=== PATIENT | male | born 1995 | race African-American/Black ===

== ENCOUNTER 2019-08-09 10:23 | Emergency (ER) | payer OTHER, SELFPAY ==
[2019-08-09 10:46] VITALS: BP 131/114; PULSE 111; RESP 16; TEMP 36.7; O2SAT 99
--- NOTE | 2019-08-09 10:46 | ED.GENADULT ---
HPI - General Adult General Chief complaint: Skin/Abscess/Foreign Body Stated complaint: rash on buttocks Time Seen by Provider: 08/09/19 10:47 Source: patient and RN notes reviewed Mode of arrival: ambulatory Limitations: no limitations History of Present Illness HPI narrative: This is a 24 years old male presents to the office for an evaluation of rash for one week. Rash is very itchy at times. He also goes days without any symptoms. He tried wick junie, hydrocortisone, and otc fungal with little relief; but did not resolved it. He had similar episode about a year ago where his doctor prescribed him a combination cream with steroid which has helped a lot. However he ran out of it. He did not see any worms in the toilet. He does not have chicken at home. Related Data Allergies Allergy/AdvReac Type Severity Reaction Status Date / Time No Known Allergies Allergy Verified 08/09/19 10:51 Review of Systems Review of Systems: Narrative: CONSTITUTIONAL: Denies fever or feeling ill ENT: Denies congestion CARDIOVASCULAR: Denies chest pain RESPIRATORY: Denies dyspnea GASTROINTESTINAL: Denies abdominal pain, nausea, vomiting SKIN: Denies rash MUSCULOSKELETAL: Denies acute back pain NEUROLOGIC: Denies lightheaded PMFSH Comments At time of signature, I agree with nursing past medical, surgical, social and family history. There is no relevant family history pertinent to the presenting complaint. Exam Narrative: Exam Narrative: GENERAL: This is a well-nourished, well-developed patient, in no apparent distress. CARDIOVASCULAR: Regular rate and rhythm without murmurs, gallops, or rubs. RESPIRATORY: Clear to auscultation. Breath sounds equal bilaterally. No wheezes, rales, or rhonchi. GASTROINTESTINAL: Abdomen soft, non-tender, nondistended. Bowel sounds are active. No hepato-splenomegaly, or palpable masses. No guarding. SKIN: Exam chaperoned by nurse Josh, rectum tone is normal; no obvious lesions/sore/warm or erythema or edematous. NO worms noted. NEURO: awake, alert, and oriented to person, place and time. There were no obvious focal neurologic abnormalities. Steady gait [place] Coma Scale Eye Opening: Spontaneous 4 [place] Coma Scale Motor: Obeys Commands 6 [place] Coma Scale Verbal: Oriented 5 Medical Decision Making MDM Narrative Medical decision making narrative: Elevated BP noted: patient is informed that they may have pre-hypertension or hypertension based on a blood pressure reading in the department. I recommend the patient call the primary care provider listed on their discharge instructions or a physician of their choice this week to arrange follow-up for further evaluation of possible pre-hypertension or hypertension within 1-2week. Discharge instructions reviewed with patient, as well as provided in writing per nursing staff. The instructions also include specific and strict return/GO TO THE ER as well as f/u information. All questions have been answered, and the patient deny any further questions with discharge and discharge plan. Differential Diagnosis Differential Diagnosis: Dermatitis, tapeworm, yeast Critical Care Time Critical Care Time Critical Care Time: No Discharge Plan Discharge Clinical Impression: Itchy skin of anus and genitals Patient Disposition: Home, Self-Care Condition: Stable Instructions: Itchy Skin (ED) Additional Instructions: Use the prescribed cream as directed Also recommend using duct tape to check for tapeworms or follow up with your doctor for stools check if symptoms persist Please schedule a follow up visit with your personal physician for further evaluation and treatment. Including recheck and discussion of your blood pressure. If your symptoms persist, change or worsen significantly before you can contact your personal physician then please, without delay, go to the emergency department for further evaluation. Your blood pressure was elevated above 120/80 toda
== END 2019-08-09 11:12 | disposition home or self-care (01) ==
PROVIDERS: Emergency Provider Nurse Practitioner
DX: L29.3 Anogenital pruritus, unspecified (principal); R03.0 Elevated blood-pressure reading, without diagnosis of hypertension
CPT/HCPCS: 99203; G0463

== ENCOUNTER 2019-12-17 16:14 | Emergency (ER) | payer OTHER, SELFPAY ==
--- NOTE | 2019-12-17 16:16 | ED.GENADULT ---
HPI - General Adult General Chief complaint: Unspecified Stated complaint: Irritation in anus area Time Seen by Provider: 12/17/19 16:15 Source: patient Mode of arrival: ambulatory Limitations: no limitations History of Present Illness HPI narrative: 24-year-old male patient presents to the [facility] with complaints of anal itching for the past week. Patient states that this initially started for him about a year ago and was diagnosed with a small tear to the anus at that time. Patient states he was seen here in the past with similar symptoms and was given a cream that did help. Patient states he does have itching especially after having a bowel movement. Patient states at times he does have issues with constipation and states he used to take a stool softener but stopped taking it when he was in middle school. Patient states that time he does notice that he has bright red blood around the anus after a bowel movement. Patient states that that does not happen every time. Denies any fevers, body aches or chills. Denies any discharge from the anus. Related Data Allergies Allergy/AdvReac Type Severity Reaction Status Date / Time No Known Allergies Allergy Verified 12/17/19 16:28 Review of Systems Review of Systems: Narrative: CONSTITUTIONAL: Denies fever, chills, or sweats. EYES: Denies visual changes, redness, or discharge. ENT: Denies rhinorrhea, congestion, sore throat, or otalgia. CARDIOVASCULAR: Denies chest pain, palpitations, or edema. RESPIRATORY: Denies cough or dyspnea. GASTROINTESTINAL: Denies abdominal pain, nausea, vomiting, or diarrhea. GENITOURINARY: Denies dysuria or hematuria. SKIN: Denies rash or itching. Positive itching to anal area x1 week MUSCULOSKELETAL: Denies back pain, joint pain, or myalgia. NEUROLOGIC: Denies headache, numbness, or weakness. PSYCHIATRIC: Denies anxiety or depression. PMFSH Comments At the time of my signature I agree with nursing past medical history, surgical, social, and family history. There is no relevant family history pertinent to the presenting complaint. Exam Narrative: Exam Narrative: GENERAL: Well-appearing, well-nourished, and in no acute distress. HEAD: Normocephalic, atraumatic. EYES: PERRLA and EOMI. ENT: Nares clear, no rhinorrhea or epistaxis. Mucous membranes moist. NECK: Supple. No lymphadenopathy CHEST: Clear to auscultation. No respiratory distress. HEART: Regular rate and rhythm. No murmur heard. Normal peripheral pulses. ABDOMEN: Soft, nontender, nondistended, normal active bowel sounds. EXTREMITIES: Normal range of motion. No edema. SKIN: Warm, dry, patient does have a shiny red rash noted to the 6:00 area of the anus. There is no obvious worms, tears or any obvious external hemorrhoids noted at this time. NEURO: No focal deficits. Alert and oriented x3. Course Vital Signs Vital signs: Vital Signs Temperature 36.8 C 12/17/19 16:24 Pulse Rate 85 12/17/19 16:24 Respiratory Rate 18 12/17/19 16:24 Blood Pressure 147/92 H 12/17/19 16:24 Pulse Oximetry 100 12/17/19 16:24 Temperature 36.8 C 12/17/19 16:24 Pulse Rate 85 12/17/19 16:24 Respiratory Rate 18 12/17/19 16:24 Blood Pressure 147/92 H 12/17/19 16:24 Pulse Oximetry 100 12/17/19 16:24 Vital signs reviewed. The patient has been informed that they may have pre-hypertension or Hypertension based on a BP reading in the department. I recommend that the patient call the primary care provider listed on their discharge instructions or a physician of their choice this week to arrange follow up for further evaluation of possible pre-hypertension or Hypertension Medical Decision Making Differential Diagnosis Differential Diagnosis: Differential diagnosis: Contact dermatitis, poison ashvin, poison sumac, psoriasis, eczema, allergic reaction, drug reaction, scabies, tinea syphilis, lung disease, viral exanthema, pityriasis, erythema multiforme. Discussed with patient that this is m
[2019-12-17 16:24] VITALS: BP 147/92; PULSE 85; RESP 18; TEMP 36.8; O2SAT 100
== END 2019-12-17 16:44 | disposition home or self-care (01) ==
PROVIDERS: Emergency Provider Nurse Practitioner Family
DX: L29.0 Pruritus ani (principal); B37.89 Other sites of candidiasis
CPT/HCPCS: 99213; G0463

== ENCOUNTER 2020-06-29 08:07 | Emergency (ER) | payer OTHER, SELFPAY ==
--- NOTE | 2020-06-29 08:14 | ED.GENADULT ---
HPI - General Adult General Chief complaint: Eye Problems Stated complaint: Eye Pain Time Seen by Provider: 06/29/20 08:14 Source: patient Mode of arrival: ambulatory Limitations: no limitations History of Present Illness HPI narrative: 25-year-old male patient presents to the [facility] with complaints of right eye pain for the past 2 days. Patient states he has been slightly sore and has couple bumps to his right lower leg. Denies any vision changes or draining coming from the eye. Patient states he has just been washing the area with some water. Related Data Allergies Allergy/AdvReac Type Severity Reaction Status Date / Time No Known Allergies Allergy Verified 06/29/20 08:19 Review of Systems Review of Systems: Narrative: CONSTITUTIONAL: Denies fever, chills, or sweats. EYES: Denies visual changes, redness, or discharge. Positive soreness to right lower leg x2 days ENT: Denies rhinorrhea, congestion, sore throat, or otalgia. CARDIOVASCULAR: Denies chest pain, palpitations, or edema. RESPIRATORY: Denies cough or dyspnea. GASTROINTESTINAL: Denies abdominal pain, nausea, vomiting, or diarrhea. GENITOURINARY: Denies dysuria or hematuria. SKIN: Denies rash or itching. MUSCULOSKELETAL: Denies back pain, joint pain, or myalgia. NEUROLOGIC: Denies headache, numbness, or weakness. PSYCHIATRIC: Denies anxiety or depression. [facility] Past Medical History Medical History (Updated 06/29/20 @ 08:30 by AUGIE Marin) Hypertension Comments At the time of my signature I agree with nursing past medical history, surgical, social, and family history. There is no relevant family history pertinent to the presenting complaint. Exam Narrative: Exam Narrative: GENERAL: Well-appearing, well-nourished, and in no acute distress. HEAD: Normocephalic, atraumatic. EYES: PERRLA and EOM intact without limitation or complaint of pain, no periorbital soft tissue swelling ,no erythema, warmth or tenderness noted, no obvious deformity. No crusting or swelling.no tearing or draining.No photophobia. Patient has 2 small styes to the external portion of the right lower lid. No drainage noted at this time. No nystagmus No FB or lesion on lid eversion. Corneas grossly clear, no obvious FB or hyphens/hypopyon. No injection to sclera. Lids and lashes clear. ENT: Nares clear, no rhinorrhea or epistaxis. Mucous membranes moist. NECK: Supple. No lymphadenopathy CHEST: Clear to auscultation. No respiratory distress. HEART: Regular rate and rhythm. No murmur heard. Normal peripheral pulses. ABDOMEN: Soft, nontender, nondistended, normal active bowel sounds. EXTREMITIES: Normal range of motion. No edema. SKIN: Warm, dry, no rash. NEURO: No focal deficits. Alert and oriented x3. Course Vital Signs Vital signs: Vital Signs Temperature 36.4 C L 06/29/20 08:17 Pulse Rate 81 06/29/20 08:17 Respiratory Rate 18 06/29/20 08:17 Blood Pressure 140/103 H 06/29/20 08:17 Pulse Oximetry 100 06/29/20 08:17 Temperature 36.4 C L 06/29/20 08:17 Pulse Rate 81 06/29/20 08:17 Respiratory Rate 18 06/29/20 08:17 Blood Pressure 140/103 H 06/29/20 08:17 Pulse Oximetry 100 06/29/20 08:17 Vital signs reviewed Medical Decision Making Differential Diagnosis Differential Diagnosis: Differential diagnosis: Conjunctivitis, foreign body, corneal ulcer, Keratitis, dendritic lesions, corneal abrasion, very orbital infection, orbital cellulitis, orbital pain, acute narrow angle glaucoma, detached retina, central retinal artery occlusion, complete hyphema, vitreous hemorrhage, optic neuritis, globe disruption Vital Signs Vital Signs: Vital Signs Temperature 36.4 C L 06/29/20 08:17 Pulse Rate 81 06/29/20 08:17 Respiratory Rate 18 06/29/20 08:17 Blood Pressure 140/103 H 06/29/20 08:17 Pulse Oximetry 100 06/29/20 08:17 Temperature 36.4 C L 06/29/20 08:17 Pulse Rate 81 06/29/20 08:17 Respiratory Rate 18 06/29/20 08:17 Blood P
[2020-06-29 08:17] VITALS: BP 140/103; PULSE 81; RESP 18; TEMP 36.4; O2SAT 100
== END 2020-06-29 08:26 | disposition home or self-care (01) ==
PROVIDERS: Emergency Provider Nurse Practitioner Family
DX: H00.012 Hordeolum externum right lower eyelid (principal); I10 Essential (primary) hypertension
CPT/HCPCS: 99213; G0463

== ENCOUNTER 2021-01-19 17:26 | Emergency (ER) | payer OTHER, SELFPAY ==
[2021-01-19] VITALS (11 sets, daily range): BP systolic 148–162; BP diastolic 91–116; PULSE 86–100; RESP 11–22; TEMP 36; O2SAT 99–100
--- NOTE | ~2021-01-19 | XR_ITS ---
EXAMINATION: XR chest 2V DATE: 01/19/2021 18:17 INDICATION: Dyspnea and chest tightness TECHNIQUE: PA and lateral views of the chest were obtained. COMPARISON: None FINDINGS: The lungs are clear with no focal airspace opacities, pulmonary edema, pleural effusion or pneumothor ax. The cardiomediastinal silhouette is normal. Visualized bones and soft tissues are unremarkable. IMPRESSION: 1. Normal chest radiograph. Reviewed, dictated and finalized at location A. ENGINEER FREIGHT IMPRESSION: 1. Normal chest radiograph.
--- NOTE | 2021-01-19 17:39 | ECG_ITS ---
Measurements Intervals [place] Rate: 85 P: 73 CA: 162 QRS: 101 QRSD: 108 T: 36 QT: 352 QTc: 420 Interpretive Statements SINUS RHYTHM WITH SINUS ARRHYTHMIA RIGHT AXIS DEVIATION DELAYED PRECORDIAL R/S TRANSITION BORDERLINE ECG Electronically Signed On 01-19-2021 17:45:36 [employer]IC[employer] by Hayden Hilton D.O.
[2021-01-19 18:01] LABS: Basophils Absolute Auto 0.1 K/mm3 (0.0-0.1); Basophils Percent Auto 0.6 % (0.2-1.2); Eosinophils Absolute Auto 0.5 K/mm3 (0-0.3); Eosinophils Percent Auto 3.5 % (0-4.4); Hematocrit 45.3 % (42.0-52.0); Hemoglobin 15.3 g/dL (14.0-18.0); Immature Granulocyte Absolute 0.03 K/mm3 (0.00-0.031); Immature Granulocyte Percent A 0.2 % (0-0.5); Lymphocytes Absolute Auto 4.17 K/mm3 (0.9-3.2); Lymphocytes Percent Auto 30.9 % (18.3-44.2); Mean Corpuscular HGB Conc 33.8 g/dl (32-36); Mean Corpuscular Hemoglobin 29.1 pg (26-34); Mean Corpuscular Volume 86.1 fl (80-100); Mean Platelet Volume 10.2 fl (7.4-10.4); Monocytes Absolute Auto 1.1 K/mm3 (0.1-0.6); Monocytes Percent Auto 7.9 % (2.6-8.5); Neutrophils Absolute Auto 7.7 K/mm3 (1.3-6.7); Neutrophils Percent Auto 56.9 % (45.5-73.1); Platelet Count Result 370 k/mm3 (150-375); Red Blood Count 5.26 M/mm3 (4.6-6.20); Red Cell Distribution Width 14.4 % (11.5-14.5); White Blood Count 13.5 K/mm3 (4.5-10.0)
[2021-01-19] MEDS: ALBUTEROL SULFATE NEB 2.5 MG/0.5 ML INH 5 MG INHALATION ×2 (19:43→19:59)
[2021-01-19] MEDS: IPRATROPIUM BR 0.02% INH SOLN 0.5 MG/2.5 ML VIAL INHALATION ×2 (19:44→19:59)
--- NOTE | 2021-01-19 19:56 | ED.SOB ---
HPI - SOB/Dyspnea General Chief Complaint: Shortness of Breath/Dyspnea Stated Complaint: hard to breath Time Seen by Provider: 01/19/21 19:04 Source: patient History of Present Illness HPI Narrative: Patient presents with shortness of breath. Patient reports he most notices it with physical activity and becomes more winded with walking short distances. Reports he had an episode of this several weeks ago which appeared to resolve on its own. Current episode is lasted for the past couple days he does report a cough denies fevers. Reports chronic congestion has not noted any acute changes in his normal congestion. Denies any nausea vomiting chest pain diarrhea lightheadedness or dizziness. He does report he smokes daily denies prior diagnosis of asthma Related Data Allergies Allergy/AdvReac Type Severity Reaction Status Date / Time No Known Allergies Allergy Verified 06/29/20 08:19 Review of Systems Review of Systems: CONSTITUTIONAL: Denies fever, chills, or sweats. EYES: Denies visual changes, redness, or discharge. ENT: Reports chronic congestion denies sore throat CARDIOVASCULAR: Denies chest pain, palpitations, or edema. RESPIRATORY: Reports cough and shortness of breath GASTROINTESTINAL: Denies abdominal pain, nausea, vomiting, or diarrhea. GENITOURINARY: Denies dysuria or hematuria. SKIN: Denies rash or itching. MUSCULOSKELETAL: Denies back pain, joint pain, or myalgia. NEUROLOGIC: Denies headache, numbness, dizziness, or weakness. PSYCHIATRIC: Denies anxiety or depression. All systems reviewed & are unremarkable except as noted in HPI and below PMFSH Past Medical History Medical History Hypertension Exam Narrative: GENERAL: Well-appearing, well-nourished, and in no acute distress. HEAD: Normocephalic, atraumatic. EYES: PERRLA and EOMI. ENT: Nares clear, no rhinorrhea or epistaxis. Mucous membranes moist. NECK: Supple. No masses. No JVD CHEST: Diminished aeration all lung foote with a Tory expiratory wheezing diffusely HEART: Regular rate and rhythm. No murmur heard. Normal peripheral pulses. EXTREMITIES: Normal range of motion. No edema. SKIN: Warm, dry, no rash. NEURO: No focal deficits. Alert and oriented x3. PSYCH: Normal mood and affect. Course Reevaluation(s) Reevaluation #1: Patient ports feeling much improved after DuoNeb therapies repeat exam is improved suspect bronchospastic possible symptoms possibly undiagnosed asthma. Patient is comfortable with continued outpatient management. Date: 01/19/21 Time: 20:24 Vital Signs Vital signs: Vital Signs Temperature 36.0 C L 01/19/21 17:33 Pulse Rate 94 01/19/21 17:33 Respiratory Rate 18 01/19/21 17:33 Blood Pressure 159/116 H 01/19/21 17:33 Pulse Oximetry 99 01/19/21 17:33 Temperature 36.0 C L 01/19/21 17:33 Pulse Rate 93 01/19/21 20:30 Respiratory Rate 14 01/19/21 20:30 Blood Pressure 161/92 H 01/19/21 20:30 Pulse Oximetry 99 01/19/21 20:30 MDM - SOB/Dyspnea MDM Narrative Medical decision making narrative: H&P as above, vs with hypertension, pt looks clinically well, exam with diffuse wheezing initially, labs clinically unremarkable, img clinically unremarkable, additional labs/img considered, symptomatic relief available as needed, on reevaluation pt continues to looks clinically well. Suspect asthma, dns pneumonia, severe sepsis, pneumothorax, hypoxia. plan to tx/monitor as op w/ pcm f/u findings/plan discussed with pt, pt agree/comfortable with plan, return precautions given. Patient counseled on Covid vaccination status Lab Data Result diagrams: 01/19/21 17:55 01/19/21 20:13 Labs: Lab Results 01/19/21 01/19/21 Range/Units 17:55 20:13 WBC 13.5 H (4.5-10.0) K/mm3 RBC 5.26 (4.6-6.20) M/mm3 Hgb 15.3 (14.0-18.0) g/dL Hct 45.3 (42.0-52.0) % MCV 86.1 (80-100) fl MCH 29.1 (26-34) pg MCHC 33.8 (32-36
[2021-01-19] MEDS: predniSONE 20 MG TABLET 60 MG PO (20:23)
[2021-01-19 20:33] LABS: Alanine Aminotransferase 18 U/L (4-50); Albumin Level 4.5 g/dL (3.5-5.1); Alkaline Phosphatase 94 U/L (38-126); Anion Gap 9 mmol/L (8-16); Aspartate Amino Transferase 20 U/L (17-59); Bilirubin,Total 0.4 mg/dL (0.2-1.3); Blood Urea Nitrogen 15 mg/dL (9-20); Calcium 9.5 mg/dL (8.4-10.2); Carbon Dioxide 27 mmol/L (22-30); Chloride 101 mmol/L (98-107); Estimated CRCL calculation 208 ml/min; Estimated Glomerular Filt Rate > 60; Glucose 96 mg/dL (65-110); Potassium 4.4 mmol/L (3.4-5.0); Sodium 137 mmol/L (137-145)
== END 2021-01-19 20:44 | disposition home or self-care (01) ==
PROVIDERS: Emergency Medicine; Emergency Provider Emergency Medicine
DX: R06.00 Dyspnea, unspecified (principal); R06.2 Wheezing; I10 Essential (primary) hypertension; R94.31 Abnormal electrocardiogram [ECG] [EKG]
CPT/HCPCS: 36415; 71046; 80053; 85025; 93005; 94640; 99284; J7512

== ENCOUNTER 2021-10-26 07:32 | Emergency (ER) | payer OTHER, SELFPAY ==
--- NOTE | ~2021-10-26 | CT_ITS ---
EXAMINATION: CT abdomen pelvis w con INDICATION: Abdominal pain TECHNIQUE: Computed tomographic images of the abdomen and pelvis were obtained after the administrati on of 100 cc of Omnipaque 350 intravenous contrast. The dose-length product (DLP) was 1566.86 mGy-cm. Automated exposure control and iterative reconstruction technique were employed. COMPARISON: None available FINDINGS: There is a 9 mm nodule in the right lower lobe. The heart size is normal. The liver, spleen , pancreas, gallbladder, and adrenal glands are normal. The kidneys are unremarkable. No pathological ly enlarged abdominal or pelvic lymph nodes are identified. There is no free intraperitoneal gas or e vidence of bowel obstruction. There is a fat-containing umbilical hernia. There is mild bruising of t he anterior abdominal wall on the right lower quadrant. IMPRESSION: 1. No CT correlate for the patient's symptoms. 2. Indeterminate 9 mm nodule of the right lower lobe. Follow-up CT in three months is recommended. Reviewed, dictated and finalized at location A. IMPRESSION: 1. No CT correlate for the patient's symptoms. 2. Indeterminate 9 mm nodule of the right lower lobe. Follow-up CT in three mon ths is recommended.
[2021-10-26 07:33] VITALS: BP 153/95; PULSE 88; RESP 20; TEMP 36.4; O2SAT 99
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
[2021-10-26] MEDS: KETOROLAC 30 MG/ML VIAL (*BKC) IV PUSH (07:59)
[2021-10-26 08:01] LABS: Basophils Percent Auto 0.4 % (0.2-1.2); Eosinophils Absolute Auto 0.3 K/mm3 (0-0.3); Eosinophils Percent Auto 3.9 % (0-4.4); Hematocrit 41.5 % (42.0-52.0); Hemoglobin 13.4 g/dL (14.0-18.0); Immature Granulocyte Absolute 0.01 K/mm3 (0.00-0.031); Immature Granulocyte Percent A 0.1 % (0-0.5); Lymphocytes Absolute Auto 2.72 K/mm3 (0.9-3.2); Lymphocytes Percent Auto 39.8 % (18.3-44.2); Mean Corpuscular HGB Conc 32.3 g/dl (32-36); Mean Corpuscular Hemoglobin 28.8 pg (26-34); Mean Corpuscular Volume 89.1 fl (80-100); Mean Platelet Volume 9.5 fl (7.4-10.4); Monocytes Absolute Auto 0.6 K/mm3 (0.1-0.6); Monocytes Percent Auto 8.9 % (2.6-8.5); Neutrophils Absolute Auto 3.2 K/mm3 (1.3-6.7); Neutrophils Percent Auto 46.9 % (45.5-73.1); Platelet Count Result 313 k/mm3 (150-375); Red Blood Count 4.66 M/mm3 (4.6-6.20); Red Cell Distribution Width 15.6 % (11.5-14.5); White Blood Count 6.8 K/mm3 (4.5-10.0)
[2021-10-26 08:20] LABS: Alanine Aminotransferase 25 U/L (6-50); Alkaline Phosphatase 69 U/L (38-126); Anion Gap 11 mmol/L (8-16); Aspartate Amino Transferase 44 U/L (17-59); Bilirubin,Total 0.5 mg/dL (0.2-1.3); Blood Urea Nitrogen 15 mg/dL (9-20); Calcium 8.7 mg/dL (8.4-10.2); Carbon Dioxide 24 mmol/L (22-30); Chloride 105 mmol/L (98-107); Estimated CRCL calculation 215 ml/min; Estimated Glomerular Filt Rate > 60; Glucose 106 mg/dL (65-110); Lipase 45 U/L (23-300); Potassium 3.9 mmol/L (3.4-5.0); Sodium 140 mmol/L (137-145)
--- NOTE | 2021-10-26 08:27 | PC.NURSE ---
Patient to radiology
[2021-10-26 08:29] VITALS: TEMP 36.4
[2021-10-26 10:01] VITALS: BP 155/78; PULSE 87; RESP 18; O2SAT 98
== END 2021-10-26 10:03 | disposition home or self-care (01) ==
PROVIDERS: Emergency Provider Emergency Medicine
DX: S30.1XXA Contusion of abdominal wall, initial encounter (principal); R91.1 Solitary pulmonary nodule; I10 Essential (primary) hypertension; V68.5XXA Driver of heavy transport vehicle injured in noncollision transport accident in traffic accident, initial encounter
CPT/HCPCS: 36415; 74177; 80053; 83690; 85025; 96374; 99284; J1885; Q9967

== ENCOUNTER 2024-06-12 05:14 | Emergency (ER) | payer OTHER, SELFPAY ==
[2024-06-12 05:14] VITALS: BP 143/97; PULSE 108; RESP 16; TEMP 36.6; O2SAT 99
--- OUTSIDE RECORDS SUMMARY | 2024-06-12 05:16 | XMS_ITS | Clinical Summary ---
Author Organization [facility] Address [address] [place] [address] Care Team Providers Care Customer Equipment Engineer Name Role Phone Nick Rosenthal MD Primary Care Provider [phone] Allergies No known active allergies Social History Tobacco Use Types Packs/Day Years Used Date Smoking Tobacco: Never Smokeless Tobacco: Never Alcohol Use Standard Drinks/Week Comments Never 0 (1 standard drink = 0.6 oz pur e alcohol) AUDIT-C Answer Date Recorded Frequency of Alcohol Consumption Never 09/28/2019 Average Number of Drinks Not on file 020 Frequency of Binge Drinking Not on file 08/31 Sex and Gender Information Value Date Recorded Sex Assigned at Not on file Legal Sex Male 11:00 AM CDT Gender Identity Not on file Sexual Orientation Not on file Last Filed Vital Signs Vital Sign Reading Time Taken Comments Blood Pressure 150/89 09/28/2019 11:06 AM CDT Pulse 86 09/28/2019 11:06 AM CDT Temperature - - Respiratory Rate 18 09/28/2019 11:0 6 AM CDT Oxygen Saturation 99% 09/28/2019 11: 06 AM CDT Inhaled Oxygen Concentration - - Weight 183.3 kg (404 lb 1.7 oz) 020 11:06 AM CDT Height 167.6 cm (5' 6 ) 09/28/2019 11:0 6 AM CDT Body Mass Index 65.22 09/28/2019 11:06 AM CDT Plan of Treatment Health Maintenance Due Date Last Done Comments Annual Physical 01/03/1996 Hepatitis C 2011 DTaP, Tdap and Td Vaccines ( 1 - Tdap) 01/03/2012 Hepatitis B Vaccines (1 of 3 - 19+ 3-dose series) 01/03/2012 COVID-19 Vaccine (2023-2 5 season) 2023 HPV Vaccines Aged Out No longer eligi ble based on patient's age to complete this topic Meningococcal B Vaccine Aged Out No l onger eligible based on patient's age to complete this topic Meningococcal Vaccine Aged Out No remington tete eligible based on patient's age to complete this topic Pneumococcal Vaccine: Pediat rics (0 to 5 Years) and At-Risk Patients (6 to 49 Years) Aged Out No longer eligible b ased on patient's age to complete this topic RSV Immunizations Under 20 Months Aged Out No longer eligible based on patient's age to complete this topic Care Teams Customer Equipment Engineer Relationship Specialty Start Date End Date Nick Rosenthal MD [address] [place] [address] PCP - General INTERNAL MEDICINE 09/28/19
--- OUTSIDE RECORDS SUMMARY | 2024-06-12 05:16 | XMS_ITS | Data Portability ---
Author Organization [place] - [facility] [employer], Main Office Address [address] [place] [address] Care Team Providers Care Regrader Name Role Phone ANA MARÍA HARDING Primary Care Provider Assessment No assessment recorded. Plan of Treatment Reminders Order Date Submit Date Provider Last Modified By Organization Details Last Modified Time Details Appointments New Patient 30 2024 08:00A M HALIMA Wright Not available Not available Not available Lab None recorded. Referral None recorded. Procedures None recorded. Surgeries None recorded. Imaging None recorded. Medication Orders cefdinir 300 mg capsule 2023 024 [employer] [facility]/Pharmacy #[id number], [address] [place], [address], 11/04/2023 15:02:35 prednison e 20 mg tablet 2023 024 [employer] [facility]/Pharmacy #[id number], [address] [place], [address], 11/04/2023 15:02:35 Patient TargetsNo targets recorded. Patient InstructionsNo instructions recorded. Reason for Referral None Reported. Results Created Date Observation Date Name Description Value Unit Range Abnormal Flag Note LastModifiedBy Organization Detail LastModifiedTime 11/25/1911/24/2023 CT, sinus es, w/o contr ast No observ ation record ed. [email or web address] [facility] [address] [place], [address], 12/07/2023 11:29:47 12/21/19 24 11/24/2023 CT, sinus es, w/o contr ast No observ ation record ed. BARCODE [facility] ([facility] Sched[facility]) [address] [place], [address], 12/21/2023 15:17:21 Result Notes None recorded. Problems Name Problem SNOMED Code Status Onset Date Resolution Date Notes Provider Name and Address Organization Details Recorded Time Allergic rhinitis 05198863 Active 024 Ragini Smith RN null, [facility] [employer] [facility] 14:56:21 Chronic sinusitis 08802674 Active 024 Ragini Smith RN null, [facility] [employer] [facility] 14:56:32 Problem Notes None recorded. Procedures Surgical History None recorded. Imaging Results Imaging Date Name Status LastModified by Organiz ation Details LastModified Time 11/24/2023 CT, sinuses, w/o contrast completed [address] [place], [address], 12/07/2023 11:29:47 11/24/2023 CT, sinuses, w/o contrast completed [facility] ([facility] Sched[facility]) [address] [place], [address], 12/21/2023 15:17:21 Procedure Notes None recorded. Medical Equipment None Reported. Allergies No known drug allergies Medications Name Sig Start Date Stop Date Status Note LastModified by Organization Details LastModified Time prednisone 20 mg tablet TAKE 1 TABLET BY MOUTH TWICE A DAY FOR 5 DAYS active Not Available Not Available No t Available topiramate 25 mg tablet TAKE 1 TABLET BY MOUTH TWICE A DAY 11/03 completed Not Available Not Available Not Available phentermine 37.5 mg tablet TAKE 1 TABLET BY MOUTH DAILY BEFORE BREAKFAST 11/03 completed Not Available Not Available Not Available cefdinir 300 mg capsule TAKE 1 CAPSULE BY MOUTH EVERY 12 HOURS FOR 10 DAYS active Not Available Not Available No t Available Vitals Date Recorded Body height Body mass index (BMI) Body weight Body temperature Provider Name and Address Organization Details Last Updated DateTime 11/04/2023 167.64 cm 80 kg/m2 083793.1 g 98.2 [degF] FAHAD Peacock [facility] [employer] [facility] 11/04/2023 14:51:51 Social History Question Answer Notes LastModified by Organizat ion Details LastModified Time Tobacco Smoking Status Former Smoker Kristi Taylor [place], [place] [facility] 11/03/2023 16:05:15 What Is Your Level Of Alcohol Consumption? Occasional [email or web address] Information not available 11/03/2023 When Did You Quit Smoking? 1-5yearssinyasmeen kyle [email or web address] Information not available 11/03/2023 Sex: Unknown Functional Status None recorded. Mental Status None recorded. Family History Nothing Reported Notes:no ent Medical History Condition Response MRSA N BACK INJECTIONS N ALLERGIES/HAYFEVER N LUNG DISEASE/DISORDER N INSOMNIA N HISTORY OF DRUG ABUSE N ESRD N RADIATION / CHEMOTHERAPY N COPD N HIGH CHOLESTEROL / HYPERLIPIDEMIA N HYPERTHYROIDISM N PVD N BLOOD DISEASES N EAR OR HEARING PROBLEMS N HYPOTHYROIDISM N SHINGLES N DEPRESSION (INCLUDING POST ) N BACK / NECK PROBLEMS N HAVE YOU BEEN HOSPITALIZED OR SEEN IN [facility] ER IN THE PAST YEAR ? N FAILED BACK SYNDROME N STROKE/TIA N POLYCYSTIC OVARIES N OBESITY N HISTORY WITH COMPLICATIONS WITH ANESTHES IA ? N ANEURYSM N Do you have Advance directive? N USE OF BLOOD THINNERS N NO SIGNIFICANT PAST MEDICAL HISTORY N DIABETES, TYPE N VON WILLIBRAND'S DISEASE N PARATHYROID DISEASE N ENT N SEASONAL ALLERGIES N HEARTBURN / REFLUX N POST LAMINECTOMY SYNDROME N HEPATITIS / LIVER DISEASE N SLEEP DISORDER Y ARTERIAL INSUFFICIENCY N SEIZURES/EPILEPSY N HEADACHES/MIGRAINES N CHF N PACEMAKER N DIZZINESS N HEART DISEASE/HEART PROBLEMS N AIDS/HIV N NEUROPSYCHOLOGICAL N HYPERTENSION N CANCER: SPECIFY N TOURETTE'S N BLOOD TRANSFUSION N ANESTHESIA COMPLICATIONS N ANEMIA/BLOOD DISORDER N CHRONIC EAR INFECTIONS N ATRIAL FIBRILLATION N AUTOIMMUNE DISEASE N TUBERCULOSIS N Past Encounters Encounter ID Performer Location Encounter Start Date Encounter Closed Date Diagnosis/Indication Diagnosis SNOMED-CT Code Diagnosis ICD10 Code Diagnosis Note [id number] AUGIE Garrido [facility] [place] [address] [place] [address] 11/04/2023 14:41:27 11/04/2023 15:03:19 Chronic sinusitis 63127127 J32.9 Health Concerns Section Related Observation LastModified by Organization Detai ls LastModified Time None Recorded Concern Status LastModified by Organization Details LastModified Time None Recorded Advance Directives Directive None Recorded Payers Encounter Date Sequence Insurance Name Policy Number Policy Hahn Covered Member ID Hahn Member ID Guarantor Name 11/04/2023 1 [employer] [place] - DOS ON OR AFTER 2020 (MEDICAID REPLACEMENT - HMO) Hayder Dalal [id number] Hayder Dalal Notes Date Note Type Note Provider Name and Address Organization Details Recorded Time 11/04/2023 text/html This patient has a past medical history significant for obesity and sleep apnea. He presents to the office with complaints of ear pressure, decreased hearing, nasal congestion, and sinus drainage. He states that the ear pressure developed approximately 2 years ago. He reports that when his nasal congestion increases, he develops the ear pressure. He states that he has constant sinus related problems since approximately the age of 6. He denies use of gwmo-hld-qfxttsh medications. He denies any recent imaging. He denies having ever seen an sawsmith. He reports use of CPAP nightly for sleep apnea. He does report routine cleaning of his CPAP device. Ragini Evans, AUGIE [address] [facility] [address], [place], [address], [place] [facility] 11/04/2023 15:02:45
--- OUTSIDE RECORDS SUMMARY | 2024-06-12 05:16 | XMS_ITS | Clinical Summary ---
Author Organization [facility] Address [address] Wagner: Epic Prelude ADT [place] [address] Care Team Providers Care Salesperson [employer] Name Role Phone Unavailable Primary Care Provider Unavailabl e Social History Tobacco Use Types Packs/Day Years Used Date Smoking Tobacco: Never Assessed Sex and Gender Information Value Date Recorded Sex Assigned at Not on file Legal Sex Male 11:53 PM CDT Gender Identity Not on file Sexual Orientation Not on file Plan of Treatment Health Maintenance Due Date Last Done Comments DTAP/TDAP/TD VACCINES (1 - Tdap) 01/03/2012 HEPATITIS B VACCINES (1 of 3 - 19+ 3-dose series) 01/03/2012 INFLUENZA VACCINE (#1) 2023 HPV VACCINES Aged Out No longer eligi ble based on patient's age to complete this topic PNEUMOCOCCAL VACCINE 0-49 YEARS Aged Out No longer eligible based on patient's age to complete this topic
--- NOTE | 2024-06-12 06:06 | ED_ITS ---
HPI - General Adult General Chief complaint: Extremity Injury, Upper Stated complaint: swollen right finger Time Seen by Provider: 06/12/24 05:54 History of Present Illness HPI narrative: Patient 29-year-old gentleman presents to the emergency department with chief complaint of swelling at the cuticle of the right middle finger. Patient reports that he had a hangnail he pulled it and noticed that he started having swelling in the cuticle area of his right middle finger. The patient states he feels though his finger is throbbing reports that he feels as though there is pus underneath the tissue Related Data Allergies Allergy/AdvReac Type Severity Reaction Status Date / Time No Known Allergies Allergy Verified 10/26/21 07:44 Review of Systems Review of Systems: A 10 system review of systems was completed on the patient and is negative except for what is stated in the HPI. Nursing and ancillary documentation was reviewed. PMFSH Past Medical History Medical History Hypertension Surgical History Surgical History No pertinent past surgical history Exam Narrative: GENERAL: Well-appearing, well-nourished, and in no acute distress. HEAD: Normocephalic, atraumatic. EYES: PERRLA and EOMI. ENT: Nares clear, no rhinorrhea or epistaxis. Mucous membranes moist. NECK: Supple. CHEST: Clear to auscultation. No respiratory distress. HEART: Regular rate and rhythm. No murmur heard. Normal peripheral pulses. ABDOMEN: Soft, nontender, nondistended, normal active bowel sounds. EXTREMITIES: Normal range of motion. No edema. There is a paronychia present of the right middle finger SKIN: Warm, dry, no rash. NEURO: No focal deficits. Alert and oriented x3. PSYCH: Normal mood and affect. Course Vital Signs Vital signs: Vital Signs Temperature 36.6 C 06/12/24 05:14 Pulse Rate 108 H 06/12/24 05:14 Respiratory Rate 16 06/12/24 05:14 Blood Pressure 143/97 H 06/12/24 05:14 Pulse Oximetry 99 06/12/24 05:14 Oxygen Delivery Room Air 06/12/24 05:14 Temperature 36.6 C 06/12/24 05:14 Pulse Rate 108 H 06/12/24 05:14 Respiratory Rate 16 06/12/24 05:14 Blood Pressure 143/97 H 06/12/24 05:14 Pulse Oximetry 99 06/12/24 05:14 Oxygen Delivery Room Air 06/12/24 05:14 Procedures Abscess I/D Right middle finger cuticle: Date of Incision: 06/12/24 Time of Incision: 06:08 Side (if applicable): right Local Anesthetic: none Technique: other (Cuticle raised with a 18 gauge needle) Amount of fluid expressed (mL): 2 I&D Results: Pus Medical Decision Making Vital Signs Vital Signs: Vital Signs Temperature 36.6 C 06/12/24 05:14 Pulse Rate 108 H 06/12/24 05:14 Respiratory Rate 16 06/12/24 05:14 Blood Pressure 143/97 H 06/12/24 05:14 Pulse Oximetry 99 06/12/24 05:14 Oxygen Delivery Room Air 06/12/24 05:14 Temperature 36.6 C 06/12/24 05:14 Pulse Rate 108 H 06/12/24 05:14 Respiratory Rate 16 06/12/24 05:14 Blood Pressure 143/97 H 06/12/24 05:14 Pulse Oximetry 99 06/12/24 05:14 Oxygen Delivery Room Air 06/12/24 05:14 Discharge Plan Discharge Clinical Impression: Paronychia Patient Disposition: Home Condition: Stable Instructions: Antibiotic Form, Paronychia (ED) Patient Language: Indonesian Prescriptions: New sulfamethoxazole-trimethoprim [Bactrim DS] 800-160 mg tablet 1 tablet PO Q12H Qty: 14 0RF sulfamethoxazole-trimethoprim [Bactrim DS] 800-160 mg tablet 1 tablet PO Q12H Qty: 14 0RF No Action erythromycin 5 mg/gram (0.5 %) ointment 1 applic RIGHT EYE DAILY Qty: 3.5 0RF albuterol sulfate 90 mcg/actuation HFA aerosol inhaler 2 puff inhalation QID PRN (Reason: shortness of breath or wheezing) Qty: 6.7 0RF prednisone 50 mg tablet 50 mg PO DAILY Qty: 4 0RF cyclobenzaprine 10 mg tablet 10 mg PO TID PRN (Reason: muscle spasm) Qty: 20 0RF naproxen 375 mg tablet 375 mg PO BID Qty: 14 0RF Follow-up/Referrals: PHYSICIAN NOT ON STAFF,NONSTAFF [Primary Care Provider] - Time of Disposition: 06:09
--- OUTSIDE RECORDS SUMMARY | 2024-06-12 06:22 | XMS_ITS | Clinical Summary ---
Author Organization [facility] at the [facility] Office Center Address [address] [place] [address] Care Team Providers Care Early Years Teacher Name Role Phone Tom Tsang MD Primary Care Provider [phone] Allergies No known active allergies Medications topiramate (TOPAMAX) 25 mg tabletIndication s:Abnormal weight gain,Class 3 severe obesity due to excess calories without serious comorbidity with body mass index (BMI) greater than or equal to 70 in adult (HCC) Take 1 tablet (25 mg total) by mouth 2 (two) times a day 60 tablet 2 4 Active albuterol HFA (PROVENTIL HFA,VENTOLIN HFA,PROAIR HFA) 90 mcg/actuation inhaler INHALE [address] PU[address] INHAL[address] ROUTE EVERY 4 HOURS NEEDED 4 Active traZODone (DESYREL) 50 mg tablet Take 1 tablet (50 mg total) by mouth nightly 30 tablet 2 4 Active Active Problems Problem Noted Date Diagnosed Date Obstructive sleep apnea 05/31/2023 BMI 70 and over, adult 05/31/2023 Psychophysiological insomnia 05/31/2023 Nonsmoker 05/31/2023 Family history of sleep apnea 05/31/2023 Restless legs 05/31/2023 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 Patient has an appointment scheduled for 05/27/2023. Discussed sleep hygiene. If symptoms worsen would recommend in person evaluation sooner than 05/26. Patient verbalized understanding and agreed to plan of care at this time. Class 3 severe obesity due t o excess calories without serious comorbidity with body mass index (BMI) greater than or equal to 70 in adult 07/17/2022 Assessment & Plan (07/17/2022 8:45 AM CDT): His insurance does not cover weight loss medications. He did well with a bariatric program previously but got expensive through [employer]. Will try [facility]'s bariatric program. Referral placed. We discussed increasing exercise and meal prepping to help with weight loss. Chronic dental pain 04/17/2021 Assessment & Plan (04/17/2021 10:50 AM RN LACTATION): Amoxicillin 500 mg tid 10 days See a dentist Annual physical exam 04/17/2021 Assessment & Plan (04/17/2021 10:50 AM RN LACTATION): Check a cbc sma 7 Lipid and lft Rash 02/12/2020 Immunizations Immunization Administration Dates Next Due DTP 02/11/1995, 4,1993,03/11 DTaP 07/30/1998 Hep A, Pediatric 10/26/2008,04/20/2008 Hep B, Adolescent or Pediatric 6,01/03/2016,1993,03/11,1993 HiB 02/11/1995, 4,1993,03/11 Influenza, Quadrivalent, Spl it, Preservative Free, Intramuscular 12/31/2015 Influenza, Split 11/23/2008 Influenza, Unspecified 05/27/2023(Deferr ed: Patient decision),02/25/2023(Deferred: Patient Refused),11/29/2021(Deferred: Patient Refused),04/17/2021(Deferred: Patient decision) MMR 01/03/2016, 9,07/30/1998,01/14 Meningococcal MCV4P (Menactra) 04/20/2008 OPV 07/30/1998, 4,1993,03/11 Pneumococcal Conjugate 7-Valent 05/15/2008 Td, adsorbed 11/27/2004 Varicella 05/15/2008 Surgical History Surgery Date Site/Laterality Comments NO PAST SURGERIES Medical History Medical History Date Comments Obesity Infection 2018 Family History Medical History Relation Name Comments No Known Problems Father No Known Problems Mother Relation Name Status Comments Father Alive Mother Alive Social History Tobacco Use Types Packs/Day Years Used Date Smoking Tobacco: Former Cigarettes 0.1 15 Cigars E-cigarettes Smokeless Tobacco: Never Tobacco Cessation:Counseling Given: Not Answered Alcohol Use Standard Drinks/Week Comments Yes 0 (1 standard drink = 0.6 oz pur e alcohol) occasionally [employer] Utilities Answer Date Recorded In the past 12 months has e [employer], gas, oil, or water [employer] threatened to shut off services in your home? No 02/26/2023 Social Connection and Isolat ion Panel [NHANES] Answer Date Recorded In a typical week, how many times do you talk on the phone with family, friends, or neighbors? More than three times a week 02/26/2023 How often do you get togethe r with friends or relatives? More than three times a week 02/26/2023 How often do you attend chur ch or presybeterian services? Never 02/26/2023 Do you belong to any clubs o r organizations such as worship groups, unions, fraternal or athletic groups, or school groups? No 02/26/2023 How often do you attend meet ings of the clubs or organizations you belong to? Never 02/26/2023 Are you , , di vorced, , never , or living with a partner? Never 02/26/2023 AUDIT-C Answer Date Recorded Q1: How often do you have a drink containing alc ohol? Monthly or less 05/27/2023 Q2: How many drinks containi ng alcohol do you have on a typical day when you are drinking? 1 or 2 05/27/2023 Q3: How often do you have si x or more drinks on one occasion? Monthly 05/27/2023 Overall Financial Resource Strain (CARDIA) Answe r Date Recorded How hard is it for you to pa y for the very basics like food, housing, medical care, and heating? Not hard at all 02/26/2023 PHQ-2 Answer Date Recorded PHQ-2 Total Score (If total score is 3 or more points, staff should administer the PHQ-9) 0 07/17/2022 Hunger Vital Sign Answer Date Recorded Within the past 12 months, y ou worried that your food would run out before you got the money to buy more. Never true 02/27/20 23 Within the past 12 months, t he food you bought just didn't last and you didn't have money to get more. Never true 02/26/2023 PRAPARE - Transportation Answer Date Re corded In the past 12 months, has l ack of transportation kept you from medical appointments or from getting medications? No 01/30 In the past 12 months, has l ack of transportation kept you from meetings, work, or from getting things needed for daily living? No 02/26/2023 Housing Stability Vital Sign Answer Sebastian e Recorded In the last 12 months, was t here a time when you were not able to pay the mortgage or rent on time? No 02/26/2023 In the last 12 months, how many places have you lived? 1 02/26/2023 In the last 12 months, was t here a time when you did not have a steady place to sleep or slept in a assisted (including now)? No 02/26/2023 Personal Safety Answer Date Recorded Getting School Help Needed Not on file 02/22 Sex and Gender Information Value Date Recorded Sex Assigned at Not on file Legal Sex Male 6:14 PM RN LACTATION Gender Identity Male 04/29/2020 9:44 AM RN LACTATION Sexual Orientation Not on file Obstetrics History Last Filed Vital Signs Vital Sign Reading Time Taken Comments Blood Pressure 129/83 12/30/2023 4:10 PM CDT Pulse 99 12/30/2023 4:10 PM CDT Temperature 36.2 C (97.2 F) 12/30/2023 4:10 PM CDT Respiratory Rate 18 12/30/2023 4:10 PM CDT Oxygen Saturation 96% 12/30/2023 4:10 PM CDT Inhaled Oxygen Concentration - - Weight 218.2 kg (481 lb) 12/30/2023 4:10 PM CDT Height 167.6 cm (5' 5.98 ) 12/30/2023 4:10 PM CD T Body Mass Index 77.67 12/30/2023 4:10 PM CDT Plan of Treatment Health Maintenance Due Date Last Done Comments Hepatitis C Screening 1993 DTaP/Tdap/Td Vaccine (6 - Tdap) 11/28/2004 11/27/2004, 07/30/1998, 02/11/1995, Additional history exists Varicella Vaccines (2 of 2 - 13+ 2-dose series) 06/12/2008 05/15/2008 Depression Screening 07/18/2023 07/17/2022, 04/17/2021, 02/12/2020 Regular Well Visit/Exam 18-64 07/18/2023 07/17/2022, 04/17/2021, 02/12/2020 Influenza Vaccine (Season Ended) 2024 12/31/2015, 11/23/2008 Pneumococcal vaccine <65 Aged Out 05/15/2008 No longer eligible based on patient's age to complete this topic Hepatitis B Screening Completed 02/02/2016 , 01/03/2016, 1993, Additional history exists HPV Vaccines Aged Out No longer eligi ble based on patient's age to complete this topic Care Teams Early Years Teacher Relationship Specialty Start Date End Date Tom Tsang MD [address] [address] PCP - General Family Medicine 02/25/23
--- OUTSIDE RECORDS SUMMARY | 2024-06-12 06:22 | XMS_ITS | Referral Summary ---
Author Organization [facility] at the [facility] Office Center Address [address] [place] [address] Care Team Providers Care Lithographic Press Operator Apprentice Name Role Phone Tom Tsang MD Primary Care Provider [phone] Allergies No known active allergies Medications topiramate [...] 04/21/2023 Assessment & Plan (04/21/2023 11:47 AM TOOL BUILDER): Recommend in person assessment with PCP for [...] bariatric program previously but got expensive through [employer]. Will try [facility]'s bariatric program. Referral placed. We discussed increasing exercise and meal prepping to help with weight loss. Chronic dental pain 04/17/2021 Assessment & Plan (04/17/2021 10:50 AM TOOL BUILDER): Amoxicillin 500 mg tid 10 days See a dentist Annual physical exam 04/17/2021 Assessment & Plan (04/17/2021 10:50 AM TOOL BUILDER): Check a cbc sma 7 Lipid and [...] 7-Valent 05/15/2008 Td, adsorbed 11/27/2004 Varicella 05/15/2008 Social History Tobacco Use Types Packs/Day Years Used Date Smoking Tobacco: Former Cigarettes 0.1 15 Cigars E-cigarettes Smokeless Tobacco: Never Tobacco Cessation:Counseling Given: Not Answered Alcohol Use Standard Drinks/Week Comments Yes 0 (1 standard drink = 0.6 oz pur e alcohol) occasionally [employer] Answer Date Recorded In the past 12 months has th e [employer], gas, oil, or water [employer] threatened to shut off services in your [...] week 02/26/2023 How often do you attend [facility] ch or jain services? Never 02/26/2023 Do you belong to any clubs o r organizations such as shinto groups, unions, fraternal or athletic groups, or [...] place to sleep or slept in a [place] facility (including now)? No 02/26/2023 Personal Safety Answer Date Recorded Getting School Help Needed Not on file 02/22 Sex and Gender Information Value Date Recorded Sex Assigned at Not on file Legal Sex Male 6:14 PM TOOL BUILDER Gender Identity Male 04/29/2020 9:44 AM TOOL BUILDER Sexual Orientation Not on file Last Filed [...] 12/30/2023 4:10 PM CDT Plan of Treatment Not on file Care Teams Lithographic Press Operator Apprentice Relationship Specialty Start Date End Date Tom Tsang MD [address] [place] [address] PCP - General Family Medicine 02/25/23
--- OUTSIDE RECORDS SUMMARY | 2024-06-12 06:22 | XMS_ITS | Clinical Summary ---
Author Organization [facility] Address [address] Wagner: Epic Prelude ADT [place] [address] Care Team Providers Care Field Naturalist Name Role Phone Unavailable Primary Care Provider [...]
--- OUTSIDE RECORDS SUMMARY | 2024-06-12 06:22 | XMS_ITS | Clinical Summary ---
Author Organization [facility] Address [address] [place] [address] Care Team Providers Care Road Conductor Name Role Phone Nick Rosenthal MD Primary Care Provider [phone] Allergies No known active allergies Social History [...] age to complete this topic Care Teams Road Conductor Relationship Specialty Start Date End Date Nick Rosenthal MD [address] [place] [address] PCP - General INTERNAL MEDICINE 09/28/19
== END 2024-06-12 06:31 | disposition home or self-care (01) ==
PROVIDERS: Emergency Provider Emergency Medicine
DX: L03.011 Cellulitis of right finger (principal); I10 Essential (primary) hypertension
CPT/HCPCS: 10060; 26010; 99283

== ENCOUNTER 2024-08-07 18:09 | Emergency (ER) | payer OTHER, SELFPAY ==
--- NOTE | ~2024-08-07 | CT_ITS ---
EXAMINATION: CT diagnostic chest wo con DATE: 08/07/2024 20:53 INDICATION: Productive cough, leukocytosis TECHNIQUE: Computed tomography (CT) of the chest was performed with 100 mL Omnipaque-350 intravenous contrast. Automated exposure control and iterative reconstruction technique were employed. The dose-l ength product was 994.20 mGy-cm. COMPARISON: X-ray chest, same date; CT abdomen pelvis 10/26/2021. FINDINGS: CHEST: Thoracic aorta: No significant dilation or calcification. Lung parenchyma and airways: Tiny subsegmental focus of groundglass opacity in the peripheral right l ower lobe. 9 mm right lower lobe pulmonary nodule, stable. Multiple additional smaller nodules are pr esent including a small calcified right lower lobe granuloma. Patent airways. Thoracic inlet, axillae and chest wall: No thyroid or soft tissue mass. No axillary lymphadenopathy. Mediastinum: No mass or lymphadenopathy. Heart and pericardium: Normal heart size. No pericardial effusion. Coronary artery calcifications: Absent. Pleura: No effusion or mass. Upper abdomen: No significant finding. Thoracic bones: No acute osseous finding in the chest. IMPRESSION: Tiny subsegmental peripheral right lower lobe groundglass opacity may represent a small focus of infl ammation/infection. Otherwise, no acute process detected in the chest. Reviewed, dictated and finalized at location K. IMPRESSION: Tiny subsegmental peripheral right lower lobe groundglass opacity may represent a small focus of inflammation/infection. Otherwise, no acute process detected in the chest.
--- NOTE | ~2024-08-07 | XR_ITS ---
EXAMINATION: XR chest 2V Exam Date/Time: 08/07/2024 18:25 CDT HISTORY: shortness of breath Comparison: 01/19/2021. RESULT: Lines, tubes, and devices: None. Lungs and pleura: Clear. Cardiomediastinal silhouette: Stable. Other: No acute osseous or upper abdominal finding. IMPRESSION: No acute cardiopulmonary process. Reviewed, dictated and finalized at location K.
[2024-08-07 18:13] VITALS: BP 153/95; PULSE 97; RESP 16; TEMP 36.6; O2SAT 96
--- NOTE | 2024-08-07 18:16 | ECG_ITS ---
Test Date: 2024-08-07 18:22:39 Measurements Intervals [place] Rate: 89 P: 69 KS: 173 QRS: 91 QRSD: 102 T: 47 QT: 360 QTc: 438 Interpretive Statements SINUS RHYTHM WITH SINUS ARRHYTHMIA RIGHT AXIS DEVIATION INCOMPLETE RIGHT BUNDLE BRANCH BLOCK BASELINE ARTIFACT- I, II, III, AVR, AVL, AVF, V1-V6 BORDERLINE ECG No previous ECG available for comparison Electronically Signed On 08-07-2024 18:42:03 CDT by Hayden Hilton D.O.
[2024-08-07 18:33] LABS: Basophils Absolute Auto 0.1 K/mm3 (0.0-0.1); Basophils Percent Auto 0.4 % (0.2-1.2); Eosinophils Absolute Auto 0.5 K/mm3 (0-0.3); Eosinophils Percent Auto 3.5 % (0-4.4); Hematocrit 39.8 % (42.0-52.0); Hemoglobin 12.7 g/dL (14.0-18.0); Immature Granulocyte Absolute 0.02 K/mm3 (0.00-0.031); Immature Granulocyte Percent A 0.2 % (0-0.5); Lymphocytes Absolute Auto 4.37 K/mm3 (0.9-3.2); Lymphocytes Percent Auto 34.2 % (18.3-44.2); Mean Corpuscular HGB Conc 31.9 g/dl (32-36); Mean Corpuscular Hemoglobin 27.7 pg (26-34); Mean Corpuscular Volume 86.7 fl (80-100); Mean Platelet Volume 9.9 fl (7.4-10.4); Monocytes Absolute Auto 1.1 K/mm3 (0.1-0.6); Monocytes Percent Auto 8.5 % (2.6-8.5); Neutrophils Absolute Auto 6.8 K/mm3 (1.3-6.7); Neutrophils Percent Auto 53.2 % (45.5-73.1); Platelet Count Result 321 k/mm3 (150-375); Red Blood Count 4.59 M/mm3 (4.6-6.20); Red Cell Distribution Width 15.2 % (11.5-14.5); White Blood Count 12.8 K/mm3 (4.5-10.0)
[2024-08-07 18:46] LABS: INR 1.1; Prothrombin Time 14.3 Seconds (11.1-14.7)
[2024-08-07 18:47] LABS: Partial Thromboplastin Time 24.8 Seconds (22.3-36.8)
[2024-08-07 18:52] LABS: Alanine Aminotransferase 19 U/L (6-50); Albumin Level 4.1 g/dL (3.5-5.1); Alkaline Phosphatase 78 U/L (38-126); Anion Gap 9 mmol/L (4-12); Aspartate Amino Transferase 22 U/L (17-59); Bilirubin,Total 0.4 mg/dL (0.2-1.3); Blood Urea Nitrogen 14 mg/dL (9-20); Calcium 9.2 mg/dL (8.4-10.2); Carbon Dioxide 24 mmol/L (22-30); Chloride 106 mmol/L (98-107); Estimated CRCL calculation 206 ml/min; Estimated Glomerular Filt Rate > 60; Glucose 97 mg/dL (65-110); Magnesium 1.9 mg/dL (1.6-2.3); Potassium 3.7 mmol/L (3.4-5.0); Sodium 139 mmol/L (137-145); Total Protein 7.7 g/dL (6.3-8.2)
[2024-08-07 19:03] LABS: NT Pro B Type Natriuretic Pept 43 pg/mL (19.9-100); Troponin I < 0.012 ng/mL (0.000-0.034)
[2024-08-07 19:11] LABS: Influenza A QL RT-PCR Negative (Negative); Influenza B QL RT-PCR Negative (Negative); RSV RNA, RT-PCR Negative (Negative); SARS-CoV-2 RNA PCR Negative (Negative)
[2024-08-07 19:57] VITALS: PULSE 97
--- NOTE | 2024-08-07 19:58 | PC.NURSE ---
ER RT notified pt in a room and will be down shortly to start Neb treatment.
--- OUTSIDE RECORDS SUMMARY | 2024-08-07 20:00 | XMS_ITS | Clinical Summary ---
Author Organization [facility] Address [address] Wagner: Epic Prelude ADT [place] [address] Care Team Providers Care Municipal Clerk Name Role Phone Unavailable Primary Care Provider [...]
[2024-08-07] MEDS: IPRATROPIUM 0.5 MG/ALBUTEROL SULFATE 2.5 MG AMPUL.NEB 3 ML INHALATION ×3 (20:08→20:13)
[2024-08-07 20:10] VITALS: PULSE 90; RESP 12
[2024-08-07 20:13] LABS: Add Urine Microscopic? YES; Appearance Urine Cloudy (Clear); Bacteria Urine None Seen /hpf; Bilirubin Urine Negative (Negative); Blood Urine Non-Hemolyzed Trace (Negative); Color Urine Yellow (Yellow); Glucose Urine UA Negative (Negative); Ketones Urine Negative (Negative); Leukocyte Esterase Ur 2+ LEU/UL (Negative); Nitrate Urine Negative (Negative); Non Pathogenic Casts 0-2; Protein Urine Negative (Negative); Specific Grav Ur 1.028 (1.001-1.035); Squamous Epithelial Cell Urine None Seen /hpf (Few); WBC Urine >100 /hpf (0-3); pH Urine 6.5 (5.0-9.0)
--- NOTE | 2024-08-07 20:13 | PCRCNOTE ---
Patient given continuous breathing treatment
--- NOTE | 2024-08-07 20:33 | ED.GENADULT ---
HPI - General Adult General Chief complaint: Unspecified Stated complaint: breathing issues Time Seen by Provider: 08/07/24 19:49 History of Present Illness HPI narrative: This is a 29-year-old morbidly obese male presenting for difficulty breathing. Patient says that recently he has developed a productive cough. Pt states that when he coughs he has pain from his neck down to his lower abdomen. He says that when he stands up and tries to walk quickly winded. He says that he had had some swelling of his ankles and feet although that has improved. He denies fevers, nausea vomiting diarrhea denies history of DVT or PE. Denies sick contacts at home. Denies history of asthma or COPD. Related Data Allergies Allergy/AdvReac Type Severity Reaction Status Date / Time No Known Allergies Allergy Verified 08/07/24 18:13 [facility] Past Medical History Medical History Hypertension Surgical History Surgical History No pertinent past surgical history Exam Narrative: APPEARANCE: No apparent distress. Morbidly obese Head: atraumatic. EYES: EOMI, NOSE: Atraumatic NECK: Trachea midline RESPIRATORY: No increased rate of breathing speaking in full sentences, end-expiratory wheezing CARDIOVASCULAR: RRR, no peripheral edema although exam limited by body habitus ABDOMINAL: Non-distended soft nontender no guarding rebound MUSCULOSKELETAl: No obvious deformities NEURO: Alert. Moving 4/4 extremities SKIN:: Warm, dry. Normal color PSYCHIATRIC: Normal affect Course Vital Signs Vital signs: Vital Signs Temperature 98 F 08/07/24 18:13 Pulse Rate 97 08/07/24 18:13 Respiratory Rate 16 08/07/24 18:13 Blood Pressure 153/95 H 08/07/24 18:13 Pulse Oximetry 96 08/07/24 18:13 Temperature 98 F 08/07/24 18:13 Pulse Rate 90 08/07/24 20:45 Respiratory Rate 12 08/07/24 20:45 Blood Pressure 153/95 H 08/07/24 18:13 Pulse Oximetry 96 08/07/24 18:13 Medical Decision Making MDM Narrative Medical decision making narrative: -Course: 29 morbidly obese male presenting with cough and difficulty breathing. He is wheezing on exam. Given a breathing treatment with significant improvement. CT showed a small subsegmental area of ground-glass opacity/inflammation which may be the trigger for the patient's wheezing. Patient is also found have an incidental urinary tract infection. Patient will be treated with a course of Augmentin/doxycycline which will both early pneumonia and the urinary tract infection. He will be discharged with an inhaler as well. Given primary care follow-up and return precautions. -DDX includes but is not limited to: Bronchitis, pneumonia, viral syndrome, sepsis UTI heart failure PE -Co-morbidities complicating care: Morbid obesity Vital Signs Vital Signs: Vital Signs Temperature 98 F 08/07/24 18:13 Pulse Rate 97 08/07/24 18:13 Respiratory Rate 16 08/07/24 18:13 Blood Pressure 153/95 H 08/07/24 18:13 Pulse Oximetry 96 08/07/24 18:13 Temperature 98 F 08/07/24 18:13 Pulse Rate 90 08/07/24 20:45 Respiratory Rate 12 08/07/24 20:45 Blood Pressure 153/95 H 08/07/24 18:13 Pulse Oximetry 96 08/07/24 18:13 Lab Data 08/07/24 18:28 08/07/24 18:28 Labs: Lab Results 08/07/24 08/07/24 08/07/24 Range/Units 18:27 18:28 19:54 WBC 12.8 H (4.5-10.0) K/mm3 RBC 4.59 L (4.6-6.20) M/mm3 Hgb 12.7 L (14.0-18.0) g/dL Hct 39.8 L (42.0-52.0) % MCV 86.7 (80-100) fl MCH 27.7 (26-34) pg MCHC 31.9 L (32-36) g/dl RDW 15.2 H (11.5-14.5) % Plt Count 321 (150-375) k/mm3 MPV 9.9 (7.4-10.4) fl Immature Gran % (Auto) 0.2 (0-0.5) % Neut % (Auto) 53.2 (45.5-73.1) % Lymph % (Auto) 34.2 (18.3-44.2) % [place] % (Auto) 8.5 (2.6-8.5) % Eos % (Auto) 3.5 (0-4.4) % Baso % (Auto) 0.4 (0.2-1.2) % Lymph # (Auto) 4.37 H (0.9-3.2) K/mm3 [place] # (Auto) 1.1 H (0.1-0.6) K/mm3 Eos # (Auto) 0.5 H (0-0.3) K/mm3 Baso # (Auto) 0.1 (0.0-0.1) K/mm3 Abs Immat Gran (auto) 0.02 (0.00-0.031) K/mm3 Absolute Neuts (auto) 6.8 H (1.3-6.7) K/mm3 Absolute Nucleated RBC 0.000 (0.0-0.012) K/mm3 Nucleated RBC % 0.0 (0.0-0.2) % PT 14.3 (11.1-14.7) Seconds INR 1.1 APTT 24.8 (22.3-36.8) Seconds D-Dimer 0.40 (<0.48) ug/mL Sodium 139 (137-145) mmol/L Potassium 3.7 (3.4-5.0) mmol/L Chloride 106 (98-107) mmol/L Carbon Dioxide 24 (22-30) mmol/L Anion Gap 9 (4-12) mmol/L BUN 14 (9-20) mg/dL Creatinine 0.78 (0.7-1.3) mg/dL Estim Creat Clear Calc 206 ml/min Estimated GFR > 60 (59 - ) Glucose 97 (65-110) mg/dL Calcium 9.2 (8.4-10.2) mg/dL Magnesium 1.9 (1.6-2.3) mg/dL Total Bilirubin 0.4 (0.2-1.3) mg/dL AST 22 (17-59) U/L ALT 19 (6-50) U/L Alkaline Phosphatase 78 (38-126) U/L Troponin I < 0.012 (0.000-0.034) ng/mL NT-Pro-B Natriuret Pep 43 (19.9-100) pg/mL Total Protein 7.7 (6.3-8.2) g/dL Albumin 4.1 (3.5-5.1) g/dL Urine Color Yellow (Yellow) Urine Appearance Cloudy H (Clear) Urine pH 6.5 (5.0-9.0) Ur Specific [place] 1.028 (1.001-1.035) Urine Protein Negative (Negative) mg/dL Urine Glucose (UA) Negative (Negative) mg/dL Urine Ketones Negative (Negative) mg/dL Ur Blood (Man) Non-hemolyzed trace (Negative) Urine Nitrate Negative (Negative) Urine Bilirubin Negative (Negative) Urine Urobilinogen 1.0 (<2.0) mg/dL Leukocyte Esterase Rfl 2+ H (Negative) HOWIE/UL Urine RBC 6-10 H (0-2) /hpf Urine WBC >100 H (0-3) /hpf Ur Squamous Epith Cells None seen (Few) /hpf Urine Bacteria None seen /hpf Urine Casts 0-2 Urine Opiates Screen Negative (Negative) Urine Methadone Screen Negative (Negative) Ur Barbiturates Screen Negative (Negative) Ur Phencyclidine Scrn Negative (Negative) Ur Amphetamine Screen Negative (Negative) U Benzodiazepines Scrn Negative (Negative) Urine Cocaine Screen Negative (Negative) U Cannabinoids Screen Positive A (Negative) Influenza A (RT-PCR) Negative (Negative) Influenza B (RT-PCR) Negative (Negative) RSV (RT-PCR) Negative (Negative) SARS-CoV-2 RNA (RT-PCR) Negative (Negative) Discharge Plan Discharge Clinical Impression: RAD (reactive airway disease) with wheezing, Pneumonia, Acute UTI Patient Disposition: Home Condition: Stable Instructions: Antibiotic Form, Reactive Airways Disease (ED), Pneumonia (ED) Additional Instructions: You were seen in the emergency department for difficulty breathing. You were wheezing and responded well to albuterol. Please take the inhaler prescribed every 4 hours until your symptoms improve. Your CT showed a small area of inflammation which may be an early infection. Additionally your urine appears infected. Please complete a course of Augmentin and doxycycline. If you develop fevers, worsening shortness of breath or any changes in her condition please return to the ED for re-evaluation. Patient Language: Kisw[place]ili Prescriptions: New amoxicillin-pot clavulanate 875-125 mg tablet 1 tablet PO Q12H Qty: 20 0RF doxycycline hyclate 100 mg capsule 100 mg PO Q12H Qty: 20 0RF albuterol sulfate [Ventolin HFA] 90 mcg/actuation HFA aerosol inhaler 1 inh inhalation QID PRN (Reason: shortness of breath or wheezing) Qty: 8.5 0RF No Action erythromycin 5 mg/gram (0.5 %) ointment 1 applic RIGHT EYE DAILY Qty: 3.5 0RF sulfamethoxazole-trimethoprim [Bactrim DS] 800-160 mg tablet 1 tablet PO Q12H Qty: 14 0RF sulfamethoxazole-trimethoprim [Bactrim DS] 800-160 mg tablet 1 tablet PO Q12H Qty: 14 0RF albuterol sulfate 90 mcg/actuation HFA aerosol inhaler 2 puff inhalation QID PRN (Reason: shortness of breath or wheezing) Qty: 6.7 0RF prednisone 50 mg tablet 50 mg PO DAILY Qty: 4 0RF cyclobenzaprine 10 mg tablet 10 mg PO TID PRN (Reason: muscle spasm) Qty: 20 0RF naproxen 375 mg tablet 375 mg PO BID Qty: 14 0RF Follow-up/Referrals: PHYSICIAN NOT ON STAFF,NONSTAFF [Primary Care Provider] -
[2024-08-07 20:36] LABS: Amphetamine Screen Urine Negative (Negative); Barbiturate Screen Urine Negative (Negative); Benzodiazepines Screen Urine Negative (Negative); Cannabinoid Screen Urine Positive (Negative); Cocaine Screen Urine Negative (Negative); Methadone Screen Urine Negative (Negative); Opiate Screen Urine Negative (Negative); Phencyclidine Screen Urine Negative (Negative)
[2024-08-07 20:45] VITALS: PULSE 90; RESP 12
[2024-08-07] MEDS: AMOXICILLIN/CLAVULANATE K 875-125 MG TAB 1 TABLET PO (23:03)
[2024-08-07] MEDS: DOXYCYCLINE HYCLATE 100 MG TABLET PO (23:04)
[2024-08-07] MEDS: dexAMETHasone SOD PHOS INJ 10 MG/ML 1 ML VIAL IV PUSH (23:04)
--- NOTE | 2024-08-07 23:07 | PCRCNOTE ---
VBG order was discontinued by physician
[2024-08-07 23:20] VITALS: BP 130/79; PULSE 89; RESP 20; TEMP 36.6; O2SAT 100
== END 2024-08-07 23:21 | disposition home or self-care (01) ==
PROVIDERS: Registered Nurse; Emergency Provider Emergency Medicine
DX: J18.9 Pneumonia, unspecified organism (principal); J45.909 Unspecified asthma, uncomplicated; N39.0 Urinary tract infection, site not specified; Z20.822 Contact with and (suspected) exposure to COVID-19; E66.01 Morbid (severe) obesity due to excess calories; Z68.45 Body mass index [BMI] 70 or greater, adult; I45.10 Unspecified right bundle-branch block
CPT/HCPCS: 36415; 71046; 71250; 80053; 80307; 81001; 83735; 83880; 84484; 85025; 85380; 85610; 85730; 87086; 87637; 93005; 94640; 96374; 99284; A9270; J1100

== ENCOUNTER 2024-08-12 18:07 | Emergency (ER) | payer OTHER, SELFPAY ==
--- OUTSIDE RECORDS SUMMARY | 2024-08-12 18:09 | XMS_ITS | Clinical Summary ---
Author Organization [facility] Address [address] [place]: Epic Prelude ADT [place] GARCIA [id number] Care Team Providers Care Workforce Management Consultant Name Role Phone Unavailable Primary Care Provider [...]
--- OUTSIDE RECORDS SUMMARY | 2024-08-12 18:09 | XMS_ITS | Data Portability ---
Author Organization [facility] [employer], Main Office Address [address] [place] [address] Care Team Providers Care Welder 2Nd Shift Name Role Phone ANA MARÍA HARDING Primary Care Provider Assessment No assessment recorded. Plan of Treatment Reminders Order Date Submit Date Provider Last Modified By Organization Details Last Modified Time Details Appointments None recorded. Lab vitamin D3, 25-hydroxy, serum 2024 025 [email or web address] 4 [facility] (Lab), [address] [place], [address], 5 17:31:08 vitamin B12 + folate, serum or blood 2024 [email or web address] [place] [address] (Lab), [address] [place], [address], 5 17:31:08 magnesium, serum or plasma 2024 [email or web address] [place] [address] (Lab), [address] [place], [address], 5 17:31:08 hemoglobin A1C, fingerstick 2024 025 [facility], [address] [place] [address], [place], [address], 5 09:52:30 CBC w/ auto diff 2024 [email or web address] [place] [address] (Lab), [address] [place], [address], 5 17:31:07 CMP, serum or plasma [address] (Lab), [address] [place], [address], 5 17:31:07 lipid panel, serum [address] (Lab), [address] [place], [address], 17:31:07 T4, free, serum [address] (Lab), [address] [place], [address], 5 17:31:07 CK (creatine kinase), total, serum [address] (Lab), [address] [place], [address], 17:31:08 TSH, serum or plasma [address] (Lab), [address] [place], [address], 17:31:08 Referral None recorded. Procedures None recorded. Surgeries None recorded. Imaging None recorded. Medication Orders cholecalcif andrade (vitamin D3) 50 mcg (2,000 unit) capsule 2024 [facility]/Pharmacy #2510, [address] [place], [address], 15:14:07 cyanocobala min (vit B-12) 1,000 mcg sublingual tablet 2024 [facility]/Pharmacy #2510, [address] [place], [address], 15:15:10 loratadine 10 mg tablet 2024 025 milo 4 [facility]/Pharmacy #2510, [address] [place], [address], 15:01:57 hydrocortis one 2.5 % topical cream with perineal applicator 2024 025 ELIO [facility]/Pharmacy #2510, [address] [place], [address], 09:25:41 cefdinir 300 mg capsule 2023 024 [facility]/Pharmacy #2510, [address] [place], [address], 09:14:10 prednisone 20 mg tablet 2023 024 [facility] 4 [facility]/Pharmacy #2510, [address] [place], [address], 09:13:53 Patient TargetsNo targets recorded. Patient Instructions Encounter Date Encounter Id Patient Instructions Last Modified By Organization Details Last Modified Time 07/20/2024 [id number] reviewed labs , gave him a copy . [email or web address] Not available 07/25/2024 14:47:49 Reason for Referral None Reported. Results Created Date Observation Date Name Description Value Unit Range Abnormal Flag Note LastModifiedBy Organization Detail LastModifiedTime 06/14/1906/13/2024 hemog lobin A1C, finge rstic k HgbA1C 4.5 Not Available [facility] [address], [address], 06/13/2024 09:26:03 11/25/1911/24/2023 CT, sinus es, w/o contr ast No observ ation record ed. [email or web address] [facility] [address] [place], [address], 12/07/2023 11:29:47 10/22/20 24 11/24/2023 CT, sinus es, w/o contr ast No observ ation record ed. [facility] ([facility]) [address], [place], [address], 12/21/2023 15:17:21 Result Notes None recorded. Problems Name Problem SNOMED Code Status Onset Date Resolution Date Notes Provider Name and Address Organization Details Recorded Time Allergic rhinitis 77421344 Active 2023 Ragini Smith RN null, Hythiam [facility] [employer] 4 14:56:21 Chronic sinusitis 74853532 Active 2023 Ragini Smith RN null, [employer] 4 14:56:32 Sleep apnea 36377281 Active 2024 HALIMA Wright [address], [address], [place], [address], [employer] 5 09:21:36 Obesity 215024766 Active 2024 HALIMA Wright [address], [place], [address], [employer] 5 09:23:15 Adult health examination Active 2024 HALIMA Wright [address], [place], [address], [employer] 5 09:23:33 Pruritus ani 26355935 Active 2024 HALIMA Wright [address], [place], [address], [employer] 5 09:24:03 Paronychia of finger 733560550 Active 2024 middle finger . HALIMA Wright [address], [address], [place], [address], [employer] 5 09:24:48 At increased risk for nutritional problem 876549802 Active 2024 HALIMA Wright [address], [place], [address], [facility] [employer] [facility] 5 09:31:06 Vitamin D deficiency 73849114 Active 2024 HALIMA Wright [address], [address], [place], [address], [facility] [employer] [facility] 5 15:12:57 Serum vitamin B12 below reference range 642665544 Active 2024 HALIMA Wright [address], [place], [address], [facility] [employer] [facility] 15:14:20 Problem Notes None recorded. Medical Equipment None Reported. Allergies No known drug allergies Medications Name Sig Start Date Stop Date Status Note LastModified by Organization Details LastModified Time azithromyci n 250 mg tablet TAKE 2 TABLETS BY MOUTH TODAY, THEN TAKE 1 TABLET DAILY FOR 4 DAYS DIRECTED 06/13 completed Not Available Not Available Not Available sulfamethox azole 400 mg-trimetho prim 80 mg tablet Take 2 tablets every 12 hours by oral route. 07/20 completed Not Available Not Available Not Available prednisone 20 mg tablet TAKE 3 TABLETS ORAL ROUTE ONCE DAILY FOR 5 DAYS 06/13 completed Not Available Not Available Not Available topiramate 25 mg tablet TAKE 1 TABLET BY MOUTH TWICE A DAY 11/03 completed Not Available Not Available Not Available phentermine 37.5 mg tablet TAKE 1 TABLET BY MOUTH DAILY BEFORE BREAKFAST 11/03 completed Not Available Not Available Not Available sulfamethox azole 800 mg-trimetho prim 160 mg tablet TAKE 1 TABLET BY MOUTH TWICE A DAY 07/20 completed Not Available Not Available Not Available hydrocortis one 2.5 % topical cream with perineal applicator APPLY A THIN LAYER TO THE AFFECTED AREA(S) BY TOPICAL ROUTE 2-4 TIMES DAILY 2024 active Not Available Not Available Not Avai lable benzonatate 100 mg capsule TAKE 1 CAPSULE ORAL ROUTE EVERY 8 HOURS NEEDED 06/13 completed Not Available Not Available Not Available cyanocobala min (vit B-12) 1,[address] 1 tablet by sublingua l route for 30 days. 2024 active Not Available Not Available Not Avai lable albuterol sulfate HFA 90 mcg/actuati on aerosol inhaler INHALE 2 PUFFS INHALATIO N ROUTE EVERY 4 HOURS NEEDED 06/13 completed Not Available Not Available Not Available cefdinir 300 mg capsule TAKE 1 CAPSULE BY MOUTH EVERY 12 HOURS FOR 10 DAYS 06/13 completed Not Available Not Available Not Available loratadine 10 mg tablet Take 1 tablet every day by oral route for 30 days. 07/20 completed Not Available Not Available Not Available cholecalcif andrade (vitamin D3) 50 mcg (2,000 unit) capsule TAKE 1 CAPSULE EVERY DAY BY ORAL ROUTE AFTER MEAL(S) FOR 30 DAYS. active Not Available Not Available No t Available Vitals Date Recorded Body height Body temperature Body mass index (BMI) Body weight Heart rate Oxygen saturation Oxygen saturation in Arterial blood by Pulse oximetry Systolic blood pressure Diastolic blood pressure Provider Name and Address Organization Details Last Updated DateTime 167.64 cm 98.4 [degF] 76.8 kg/m2 594975. 97 g 96 /min 97 % 97 % 124 mm[Hg] 84 mm[Hg] AMARI Arriola [facility] [employer] [facility] 09:18:54 Date Recorded Body height Body mass index (BMI) Body weight Body temperature Heart rate Oxygen saturation Oxygen saturation in Arterial blood by Pulse oximetry Systolic blood pressure Diastolic blood pressure Provider Name and Address Organization Details Last Updated DateTime 167.64 cm 76 kg/m2 072221. 01 g 97.9 [degF] 91 /min 96 % 96 % 152 mm[Hg] 78 mm[Hg] AMARI Arriola [facility] [employer] [facility] 15:04:38 Date Recorded Body height Body mass index (BMI) Body weight Body temperature Provider Name and Address Organization Details Last Updated DateTime 11/04/2023 167.64 cm 80 kg/m2 325078.1 g 98.2 [degF] FAHAD Peacock [facility] [employer] [facility] 11/04/2023 14:51:51 Social History Question Answer Notes LastModified by Organizat ion Details LastModified Time Tobacco Smoking Status Current Some Day Smoker AMARI Arriola, [facility] [employer] 06/13/2024 09:09:54 What Is Your Level Of Caffeine Consumption? Occasional Information not available 06/13/2024 In The 14 Days Before Symptom Onset, Have You Had Close Contact With A Laboratory-confir med COVID-19 While That Case Was Ill? No Information not available 06/13/2024 In The 14 Days Before Symptom Onset, Have You Had Close Contact With A Person Who Is Under Investigation For COVID-19 While That Person Was Ill? No Information not available 06/13/2024 What Type Of Diet Are You Following? REGULAR Information not available 06/13/2024 What Is The Highest Grade Or Level Of School You Have Completed Or The Highest Degree You Have Received? [id number] Information not available 06/13/2024 Have There Been Any Changes To Your Family Or Social Situation? No Information no t available 06/13/2024 What Is The Fluoride Status Of Your Home? Fluoridated Information not available 06/13/2024 Do You Use Insect Repellent Routinely? No Information not available 06/13/2024 Where Do You Live? Apartment Information not available 06/13/2024 How Many Children Do You Have? 1 Information not available 06/13/2024 Have You Ever Been Counseled For Unhealthy Alcohol Use? No Information not available 06/13/2024 Do You Have Any Pets? Yes Information not available 06/13/2024 What Is Your Relationship Status? Single Information not available 06/13/2024 Do You Use Your Seat Belt Or Car Seat Routinely? Yes Information not available 06/13/2024 At What Age Did You Start Smoking Tobacco? 13 Information not available 06/13/2024 Are There Any Smokers In Your House? Yes Information not available 06/13/2024 Do You Participate In Social Media? Yes Information not available 06/13/2024 Do You Use Sunscreen Routinely? No Information not available 06/13/2024 Have You Recently Traveled Abroad? No Information not available 06/13/2024 Have You Used IV Drugs? No Information not available 06/13/2024 Do You Have Any Dietary Restrictions? No Information not available 06/13/2024 Sex: Unknown Functional Status Question Answer Note LastModified by Organizat ion Details LastModified Time Do you use any illicit or recreational drugs? Yes Information not available 06/13/2024 What is your level of alcohol consumption? Occasional [id number] Information not available 11/03/2023 Are you currently employed? 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 None Information not available 06/13/2024 Mental Status Question Answer Note LastModified by Organization D etails LastModified Time Do you feel stressed (tense, restless, nervous, or anxious, or unable to sleep at night)? [id number] Information not available 06/13/2024 Family History Nothing Reported Notes:no ent Medical History Condition Response OTHER # 1 Y HYPOTHYROIDISM N HISTORY WITH COMPLICATIONS WITH ANESTHES IA ? N PARATHYROID DISEASE N ENT N SEASONAL ALLERGIES N SLEEP DISORDER ANESTHESIA COMPLICATIONS N Past Encounters Encounter ID Performer Location Encounter Start Date Encounter Closed Date Diagnosis/Indication Diagnosis SNOMED-CT Code Diagnosis ICD10 Code Diagnosis Note [id number] Adrian Fischer MD [facility] [place] [address] [place] [address] 11/04/2023 14:41:27 11/04/2023 15:03:19 Chronic sinusitis 98413588 J32.9 [id number] Satish Mitchell MD [address] [address] 06/13/2024 09:01:11 06/13/2024 09:55:38 Obesity 537714324 E66.9 Pruritus ani 18633647 L2 9.0 Adult heal th examination 926863660 Z00.00 Allergic rhinitis 955298 04 J30.9 [facility] ed risk for nutritional problem 671035934 Z91.89 Sleep apnea 47478738 G47 .30 [id number] Satish Mitchell MD [facility] [address] [place] [address] 07/03/2024 10:01:08 07/03/2024 10:18:41 [id number] Satish Mitchell MD [facility] [address] [address] 07/20/2024 14:55:11 07/20/2024 15:22:17 Vitamin D deficiency 79194069 E55.9 Serum terrell min B12 below reference range 217129028 E53.8 Health Concerns Section Related Observation LastModified by Organization Detai ls LastModified Time None Recorded Concern Status LastModified by Organization Details LastModified Time None Recorded Advance Directives Directive None Recorded Payers Insurance Date Sequence Insurance Name Policy Number Policy Hahn Covered Member ID Hahn Member ID Guarantor Name 06/09/2024 [facility] Hayder White SELF SELF Hayder White 06/09/2024 1 [employer] [facility] ON OR AFTER 01/30/2020 (MEDICAID REPLACEMENT - HMO) Hayder White [id number] Hayder White 07/26/2024 1 [employer] [place] [employer] [id number] Hayder Dalal Notes Date Note Type Note [...] age of 6. He denies use of utfj-ygg-rnvbyyi medications. He denies any recent imaging. He denies having ever seen an loan review analyst. He reports use of CPAP nightly for sleep apnea. He does report routine cleaning of his CPAP device. AUGIE Garrido [address], [place], [address], [facility] 11/04/2023 15:02:45 06/13/2024 text/html has a cpap for 1 year , set at 14 pressure . HALIMA Wright [address], [place], [address], [facility] [employer] [facility] 06/26/2024 16:53:14 07/20/2024 text/html no problems HALIMA Wright [address], [place], [address], [facility] [employer] [facility] 07/25/2024 14:48:24
[2024-08-12 18:10] VITALS: BP 142/86; PULSE 99; RESP 16; TEMP 37; O2SAT 98
--- OUTSIDE RECORDS SUMMARY | 2024-08-12 18:33 | XMS_ITS | Clinical Summary ---
Author Organization [facility] Address [address] [place]: Epic Prelude ADT JOHN GARCIA [address] Care Team Providers Care Tongue Binder Name Role Phone Unavailable Primary Care Provider [...]
--- NOTE | 2024-08-12 18:41 | ED.NAVMDI ---
HPI - Nausea/Vomiting/Diarrhea General Chief complaint: Nausea/Vomiting/Diarrhea Stated complaint: possible c-diff Time Seen by Provider: 08/12/24 18:24 History of Present Illness HPI Narrative: 29-year-old male presenting to the emergency department for diarrhea. He was recently evaluated in this hospital about 5 days prior and diagnosed with pneumonia and urinary infection for which she was treated with a course of Augmentin and doxycycline. He states that his symptoms have improved but now he has developed some diarrhea with loose watery stools. No abdominal pain, nausea, vomiting. Endorses voluminous watery stools and now having some itching near his rectum as has to constantly clean himself. Denies any fever, chills, bloody diarrhea or mucous. Patient is concerned about potential C diff after he Googled his symptoms. Related Data Allergies Allergy/AdvReac Type Severity Reaction Status Date / Time No Known Allergies Allergy Verified 08/12/24 19:29 Review of Systems Review of Systems: As reviewed above in HPI [facility] Past Medical History Medical History Hypertension Surgical History Surgical History No pertinent past surgical history Exam Narrative: GENERAL: Morbidly obese but not any acute distress HEAD: [Normocephalic, atraumatic.] EYES: [PERRLA and EOMI.] ENT: Nares clear, no rhinorrhea or epistaxis. Mucous membranes moist. NECK: Supple. CHEST: [Clear to auscultation. No respiratory distress.] HEART: [Regular rate and rhythm]. No murmur heard. [Normal peripheral pulses.] ABDOMEN: [Soft, nondistended], [nontender], [No rigidity or guarding] EXTREMITIES: Normal range of motion. [No edema.] SKIN: Warm, dry, no rash. NEURO: [No focal deficits]. Alert and oriented [x3.] PSYCH: [Normal mood and affect.] Course Vital Signs Vital signs: Vital Signs Temperature 37.0 C 08/12/24 18:10 Pulse Rate 99 08/12/24 18:10 Respiratory Rate 16 08/12/24 18:10 Blood Pressure 142/86 H 08/12/24 18:10 Pulse Oximetry 98 08/12/24 18:10 Oxygen Delivery Room Air 08/12/24 18:10 Temperature 37.0 C 08/12/24 18:10 Pulse Rate 99 08/12/24 18:10 Respiratory Rate 16 08/12/24 18:10 Blood Pressure 142/86 H 08/12/24 18:10 Pulse Oximetry 98 08/12/24 18:10 Oxygen Delivery Room Air 08/12/24 18:10 MDM - Nausea/Vomiting/Diarrhea MDM Narrative Medical decision making narrative: 29-year-old male presenting to the emergency department for evaluation of diarrhea. Recently started on Augmentin and doxycycline for pneumonia and urinary tract infection. Symptoms from this are improving but now he is having increased frequency and watery stool. No fever, no abdominal pain otherwise well-appearing. Morbidly obese but normal exam otherwise. Patient is worried about C diff after he looked online for his symptoms. Likely patient has a normal response to his antibiotic regimen including GI upset and diarrhea but will evaluate for C diff with a stool sample that will be obtained at bedside and sent to the lab. Basic laboratory studies were obtained as well as a lactic acid to look for a potential kidney problem, liver problem or leukocytosis. Laboratory studies are reassuring. Hemoglobin of 13.1, around baseline, white count 11.7 decreased from prior evaluation this week. Normal platelet count. Electrolytes are unremarkable. Normal renal function, normal glucose and LFTs. Negative lactic acid. C diff sent and negative. No further testing indicated. Patient can be discharged. Encouraged to maintain good oral hydration will be prescribed loperamide as needed for loose stools. Medical Records Attestation: I reviewed the patient's medical records. Lab Data Attestation: I reviewed the patient's lab results. 08/12/24 19:02 08/12/24 19:02 Labs: Lab Results 08/12/24 Range/Units 19:02 WBC 11.7 H (4.5-10.0) K/mm3 RBC 4.77 (4.6-6.20) M/mm3 Hgb 13.1 L (14.0-18.0) g/dL Hct 41.6 L (42.0-52.0) % MCV 87.2 (80-100) fl MCH 27.5 (26-34) pg MCHC 31.5 L (32-36) g/dl RDW 15.4 H (11.5-14.5) % Plt Count 321 (150-375) k/mm3 MPV 10.0 (7.4-10.4) fl Immature Gran % (Auto) 0.3 (0-0.5) % Neut % (Auto) 53.7 (45.5-73.1) % Lymph % (Auto) 33.2 (18.3-44.2) % [place] % (Auto) 8.6 H (2.6-8.5) % Eos % (Auto) 3.8 (0-4.4) % Baso % (Auto) 0.4 (0.2-1.2) % Lymph # (Auto) 3.88 H (0.9-3.2) K/mm3 [place] # (Auto) 1.0 H (0.1-0.6) K/mm3 Eos # (Auto) 0.4 H (0-0.3) K/mm3 Baso # (Auto) 0.1 (0.0-0.1) K/mm3 Abs Immat Gran (auto) 0.03 (0.00-0.031) K/mm3 Absolute Neuts (auto) 6.3 (1.3-6.7) K/mm3 Absolute Nucleated RBC 0.000 (0.0-0.012) K/mm3 Nucleated RBC % 0.0 (0.0-0.2) % Sodium 139 (137-145) mmol/L Potassium 4.0 (3.4-5.0) mmol/L Chloride 104 (98-107) mmol/L Carbon Dioxide 27 (22-30) mmol/L Anion Gap 8 (4-12) mmol/L BUN 16 (9-20) mg/dL Creatinine 0.77 (0.7-1.3) mg/dL Estim Creat Clear Calc 209 ml/min Estimated GFR > 60 (59 - ) Glucose 90 (65-110) mg/dL Lactic Acid 0.7 (0.7-2.0) mmol/L Calcium 9.0 (8.4-10.2) mg/dL Total Bilirubin 0.2 (0.2-1.3) mg/dL AST 17 (17-59) U/L ALT 17 (6-50) U/L Alkaline Phosphatase 76 (38-126) U/L Total Protein 7.4 (6.3-8.2) g/dL Albumin 3.9 (3.5-5.1) g/dL C. difficile (PCR) Negative (NEGATIVE) Discharge Plan Discharge Clinical Impression: Drug-induced diarrhea Patient Disposition: Home Condition: Stable Instructions: Antibiotic Form, Acute Diarrhea (ED) Additional Instructions: All of your laboratory studies are reassuring. No signs of C diff. Symptoms consistent with side effects from your antibiotics but you need to continue taking them for resolution of the infections that you are dealing with. We will send you home with some medications to control diarrhea side effects. Return with any emergent concerns. Maintain good oral hydration and bland diet. Patient Language: Guinean Prescriptions: New loperamide 2 mg tablet 2 mg PO Q6H PRN (Reason: loose stool) Qty: 14 0RF No Action erythromycin 5 mg/gram (0.5 %) ointment 1 applic RIGHT EYE DAILY Qty: 3.5 0RF sulfamethoxazole-trimethoprim [Bactrim DS] 800-160 mg tablet 1 tablet PO Q12H Qty: 14 0RF sulfamethoxazole-trimethoprim [Bactrim DS] 800-160 mg tablet 1 tablet PO Q12H Qty: 14 0RF amoxicillin-pot clavulanate 875-125 mg tablet 1 tablet PO Q12H Qty: 20 0RF doxycycline hyclate 100 mg capsule 100 mg PO Q12H Qty: 20 0RF albuterol sulfate [Ventolin HFA] 90 mcg/actuation HFA aerosol inhaler 1 inh inhalation QID PRN (Reason: shortness of breath or wheezing) Qty: 8.5 0RF albuterol sulfate 90 mcg/actuation HFA aerosol inhaler 2 puff inhalation QID PRN (Reason: shortness of breath or wheezing) Qty: 6.7 0RF prednisone 50 mg tablet 50 mg PO DAILY Qty: 4 0RF cyclobenzaprine 10 mg tablet 10 mg PO TID PRN (Reason: muscle spasm) Qty: 20 0RF naproxen 375 mg tablet 375 mg PO BID Qty: 14 0RF Follow-up/Referrals: PHYSICIAN,ESTATE PLANNING DIRECTOR [Primary Care Provider] - Time of Disposition: 20:02
[2024-08-12] MEDS: LACTATED RINGERS 1,000 ML 999 ML IV CONT (19:08)
[2024-08-12 19:14] LABS: Basophils Absolute Auto 0.1 K/mm3 (0.0-0.1); Basophils Percent Auto 0.4 % (0.2-1.2); Eosinophils Absolute Auto 0.4 K/mm3 (0-0.3); Eosinophils Percent Auto 3.8 % (0-4.4); Hematocrit 41.6 % (42.0-52.0); Hemoglobin 13.1 g/dL (14.0-18.0); Immature Granulocyte Absolute 0.03 K/mm3 (0.00-0.031); Immature Granulocyte Percent A 0.3 % (0-0.5); Lymphocytes Absolute Auto 3.88 K/mm3 (0.9-3.2); Lymphocytes Percent Auto 33.2 % (18.3-44.2); Mean Corpuscular HGB Conc 31.5 g/dl (32-36); Mean Corpuscular Hemoglobin 27.5 pg (26-34); Mean Corpuscular Volume 87.2 fl (80-100); Monocytes Percent Auto 8.6 % (2.6-8.5); Neutrophils Absolute Auto 6.3 K/mm3 (1.3-6.7); Neutrophils Percent Auto 53.7 % (45.5-73.1); Platelet Count Result 321 k/mm3 (150-375); Red Blood Count 4.77 M/mm3 (4.6-6.20); Red Cell Distribution Width 15.4 % (11.5-14.5); White Blood Count 11.7 K/mm3 (4.5-10.0)
--- NOTE | 2024-08-12 19:20 | PC.NURSE ---
Report received from LISA Beltran. Assumed care of patient at this time.
[2024-08-12 19:24] LABS: Alanine Aminotransferase 17 U/L (6-50); Albumin Level 3.9 g/dL (3.5-5.1); Alkaline Phosphatase 76 U/L (38-126); Anion Gap 8 mmol/L (4-12); Aspartate Amino Transferase 17 U/L (17-59); Bilirubin,Total 0.2 mg/dL (0.2-1.3); Blood Urea Nitrogen 16 mg/dL (9-20); Carbon Dioxide 27 mmol/L (22-30); Chloride 104 mmol/L (98-107); Estimated CRCL calculation 209 ml/min; Estimated Glomerular Filt Rate > 60; Glucose 90 mg/dL (65-110); Sodium 139 mmol/L (137-145); Total Protein 7.4 g/dL (6.3-8.2)
[2024-08-12 19:25] LABS: Lactic Acid Reflex 0.7 mmol/L (0.7-2.0)
[2024-08-12 20:00] LABS: Toxigenic C. Diff NEGATIVE (NEGATIVE)
[2024-08-12 20:16] VITALS: BP 155/84; PULSE 84; RESP 17; O2SAT 100
== END 2024-08-12 20:17 | disposition home or self-care (01) ==
PROVIDERS: Emergency Provider Student in an Organized Health Care Education/Training Program
DX: K52.1 Toxic gastroenteritis and colitis (principal); T36.0X5A Adverse effect of penicillins, initial encounter; T36.1X5A Adverse effect of cephalosporins and other beta-lactam antibiotics, initial encounter; T36.4X5A Adverse effect of tetracyclines, initial encounter; I10 Essential (primary) hypertension; E66.01 Morbid (severe) obesity due to excess calories; Z68.45 Body mass index [BMI] 70 or greater, adult
CPT/HCPCS: 36415; 80053; 83605; 85025; 87493; 96360; 99283; J7120